=== PATIENT | male | born 1965 | race Caucasian/White ===

== ENCOUNTER 2017-09-23 09:13 | Day surgery (SDC) | payer OTHER, BC ==
[~2017-09-23] VITALS: Ht 180.3 cm; Wt 169.6 kg
[~2017-09-23 09:13] MED LIST: ATEN50TA2 PO; ATOR40TA75; CELE1CAP4 PO; FENO48TA2 PO; GABA600T PO; LIDOCAINE 1% MDV 20ML VIAL SQ PRN; LIDOCAINE 2% INJ 100 MG/5 ML SDV (FOR ANES.) As Ordered ONE; LOSA100T5 PO; LR 1,000 ML IV ONE; MIDAZOLAM INJ 2 MG/2 ML VIAL (J2250) As Ordered ONE; OMEP20CA3; ONDANSETRON 4MG/2ML VIAL (J2405) As Ordered ONE; ROCURONIUM BROMIDE 50 MG/5 ML VIAL As Ordered ONE; VICT18IN; fentaNYL 100 MCG/2 ML INJECTION (J3010) As Ordered ONE
[2017-09-23] MEDS ORDERED: BUPIVACAINE LIPOSOME/PF 1.3% 20 ML VIAL (13.3MG/ML)(EXPAREL) As Ordered ONE (10:57)
[2017-09-23] MEDS ORDERED: BUPIVACAINE HCL 0.25% 30 ML VIAL As Ordered ONE (10:57)
[2017-09-23] MEDS ORDERED: GLYCOPYRROLATE INJ 0.2 MG/ML 2 ML VIAL As Ordered ONE (12:04)
[2017-09-23] MEDS ORDERED: NEOSTIGMINE 10 MG/10 ML VIAL (J2710) As Ordered ONE (12:04)
[2017-09-23] MEDS ORDERED: KETOROLAC 60 MG/2 ML VIAL (J1885) As Ordered ONE (12:10)
[2017-09-23] MEDS ORDERED: SUGAMMADEX SODIUM 500 MG/5 ML VIAL (BRIDION) As Ordered ONE (12:24)
[2017-09-23] MEDS ORDERED: NORCO, ANEXSIA 5/325MG TABLET (HYDROcodone/ACETAMINOPHEN) PO PRN (13:00)
[2017-09-23] MEDS ORDERED: LR 1,000 ML IV SCH (13:00)
[2017-09-23] MEDS ORDERED: fentaNYL 100 MCG/2 ML INJECTION (J3010) IV PRN (13:00)
[2017-09-23] MEDS ORDERED: METOCLOPRAMIDE INJ 10MG/2ML VIAL (J2765) IV PRN (13:00)
[2017-09-23] MEDS ORDERED: ONDANSETRON 4MG/2ML VIAL (J2405) IV PRN (13:00)
[2017-09-23] MEDS ORDERED: PERCOCET 5MG/325MG TAB PO PRN (13:00)
[2017-09-23] MEDS ORDERED: ACETAMINOPHEN TAB 650MG DOSE (2X325MG) PO PRN (13:00)
[2017-09-23 14:07] VITALS: BP 137/81
--- NOTE | 2017-09-26 08:33 | RO ---
DATE OF PROCEDURE: 09/23/2017 PREOPERATIVE DIAGNOSIS: Umbilical hernia. POSTOPERATIVE DIAGNOSIS: Umbilical hernia. PROCEDURE PERFORMED: Umbilical herniorrhaphy. SURGEON: Abel Forman MD INSPECTOR CHIEF: ANESTHESIA: General. INDICATIONS FOR PROCEDURE: The patient is a 52-year-old man who has noticed a small bulge within the umbilicus for some time. This has occasionally been uncomfortable when he could feel and moving in or out. Recently he thinks it is sticking out more and is perhaps slightly larger. He is now for repair of his umbilical hernia. OPERATIVE PROCEDURE: The patient was placed under general endotracheal anesthesia. The patient's abdomen was prepped and draped in a sterile fashion. An approximately 4-5 cm transverse skin incision was made just above the umbilicus. This was deepened into the subcutaneous tissues. The dissection was carried down to the fascia. The hernia bulge was identified protruding through the fascia. The umbilical skin was elevated away from the bulge. This was dissected free circumferentially at the level of the fascia. The fascial defect was approximately 1.5 cm in diameter. The peritoneum was not opened. The bulge appeared to consist primarily of some preperitoneal fat. This was reduced beneath the fascia. The edges of the fascia were easily identified and the fascia appeared of good strength. Therefore. a primary transverse closure was performed with interrupted simple sutures of #0 Ethibond. The umbilical skin was tacked down to the underlying fascia with a single #3-0 Vicryl suture. Approximately 10 mL of 0.25% Marcaine were infiltrated about the wound. The subcutaneous tissues were approximated with #3-0 Vicryl and the skin edges were approximated with a running subcuticular #4-0 Vicryl and Steri-Strips. The umbilicus was filled with a fluffed 2 x 2 and 4 x 4 were applied. The patient tolerated the procedure well without apparent complication. He was awakened in the operating room, extubated and moved to the recovery room in stable condition.
== END 2017-09-23 14:12 | disposition home or self-care (01) ==
LOC: M SDC 09:13
PROVIDERS: ATTEND Surgery
DX: K42.9 Umbilical hernia without obstruction or gangrene (principal); I10 Essential (primary) hypertension; G47.33 Obstructive sleep apnea (adult) (pediatric); E78.00 Pure hypercholesterolemia, unspecified; E11.9 Type 2 diabetes mellitus without complications; M19.90 Unspecified osteoarthritis, unspecified site; M54.5 Low back pain; Z79.899 Other long term (current) drug therapy; Z79.84 Long term (current) use of oral hypoglycemic drugs
CPT/HCPCS: 49585; J1885; J2250; J2405; J2710; J3010